=== PATIENT | female | born 1945 | race Caucasian/White ===

== ENCOUNTER → 2021-08-14 | Outpatient (CLI) | payer MEDICARE, OTHER | LOC: MHCPAIN 15:18 | DX: M47.896 Other spondylosis, lumbar region (principal); M53.3 Sacrococcygeal disorders, not elsewhere classified; M54.16 Radiculopathy, lumbar region; G89.29 Other chronic pain | CPT/HCPCS: G0463 ==

== ENCOUNTER → 2021-11-16 | Outpatient (CLI) | payer MEDICARE, OTHER | LOC: MC.RAD 13:38 | DX: Z12.31 Encounter for screening mammogram for malignant neoplasm of breast (principal); N60.11 Diffuse cystic mastopathy of right breast; N60.12 Diffuse cystic mastopathy of left breast ==

== ENCOUNTER → 2021-12-12 | Outpatient (CLI) | payer MEDICARE, OTHER ==
[~2021-12-12] MED LIST: COREG 25MG25 MG/TAB PO; LASIX 40MG TABL40 MG PO; LIPITOR 80MG80 MG PO; PLAVIX 75MG TAB75 MG PO; PROTONIX20 MG PO; SYNTHROID0.088 MG/T PO; TENORMIN 5050 MG/TAB PO; TRELEGY ELLIPT1 EACH IH; ZOLOFT 50MG50 MG PO
[2021-12-12 11:37] LABS: ARTERIAL BLD GAS O2 SATURATION 90.9 % (92-100); ARTERIAL BLD GAS TCO2 CT 29.3; ARTERIAL BLOOD GAS BASE EXCESS 2.2 (-2-2); ARTERIAL BLOOD GAS HCO3 27.8 meq/L (22-26); ARTERIAL BLOOD GAS PO2 60.9 mmHg (80-100); ARTERIAL BLOOD GAS pH 7.39 (7.35-7.45)
== END ==
LOC: COL.PUL 11:16
PROVIDERS: Internal Medicine Pulmonary Disease
DX: J44.9 Chronic obstructive pulmonary disease, unspecified (principal)

== ENCOUNTER → 2021-12-25 | Outpatient (CLI) | payer MEDICARE, OTHER | LOC: MHCPAIN 12:10 | DX: M47.817 Spondylosis without myelopathy or radiculopathy, lumbosacral region (principal); M54.50 Low back pain, unspecified; M53.3 Sacrococcygeal disorders, not elsewhere classified | CPT/HCPCS: G0463; J1100; Q9967 ==

== ENCOUNTER → 2022-01-01 | Outpatient (CLI) | payer MEDICARE, OTHER ==
[~2022-01-01] MED LIST changes: +ASPIRIN E.C. 8181 MG PO; +ULTRAM 50MG TAB50 MG PO
== END ==
LOC: MHCPAIN 15:43
DX: M47.816 Spondylosis without myelopathy or radiculopathy, lumbar region (principal); M53.3 Sacrococcygeal disorders, not elsewhere classified; M54.50 Low back pain, unspecified
CPT/HCPCS: G0463

== ENCOUNTER 2022-01-22 15:58 | Outpatient (CLI) | payer MEDICARE, OTHER ==
[~2022-01-22 15:58] MED LIST changes: -ASPIRIN E.C. 8181 MG PO; -ULTRAM 50MG TAB50 MG PO
[2022-01-22] MEDS ORDERED: ULTRAM 50MG TAB50 MG PO (17:35)
[2022-01-22] MEDS ORDERED: ASPIRIN E.C. 8181 MG PO (17:35)
== END 2022-01-22 17:45 | disposition home or self-care (01) ==
LOC: EUO 15:58
DX: M81.0 Age-related osteoporosis without current pathological fracture (principal)
CPT/HCPCS: J3111

== ENCOUNTER 2022-03-02 12:38 | Outpatient (RCR) | payer MEDICARE, OTHER ==
[~2022-03-02] VITALS: Ht 154.9 cm; Wt 71.5 kg
[~2022-03-02 12:38] MED LIST changes: +ASPIRIN E.C. 8181 MG PO; +ULTRAM 50MG TAB50 MG PO
[2022-03-02 12:59] VITALS: BP 160/90; PULSE 57; TEMP 98.6
== END 2022-03-02 13:17 ==
LOC: EUO 12:38
DX: M81.0 Age-related osteoporosis without current pathological fracture (principal)
CPT/HCPCS: J3111

== ENCOUNTER 2022-07-05 16:11 | Outpatient (RCR) | payer MEDICARE, OTHER ==
[~2022-07-05] VITALS: Ht 154.9 cm; Wt 57.2 kg
[2022-07-05 16:38] VITALS: BP 115/76; PULSE 60; TEMP 98.8
== END 2022-07-05 18:54 | disposition home or self-care (01) ==
LOC: EUO 16:11
DX: M81.0 Age-related osteoporosis without current pathological fracture (principal)
CPT/HCPCS: J3111

== ENCOUNTER 2022-08-03 15:35 | Outpatient (RCR) | payer MEDICARE, OTHER ==
[2022-08-03 15:54] VITALS: BP 113/76; PULSE 60; TEMP 98.3
== END 2022-08-03 16:04 ==
LOC: EUO 15:35
DX: M81.0 Age-related osteoporosis without current pathological fracture (principal)
CPT/HCPCS: J3111

== ENCOUNTER → 2022-08-08 | Outpatient (CLI) | payer MEDICARE, OTHER | LOC: MHCPAIN 15:49 | DX: M47.816 Spondylosis without myelopathy or radiculopathy, lumbar region (principal); M54.50 Low back pain, unspecified; M53.3 Sacrococcygeal disorders, not elsewhere classified; M54.16 Radiculopathy, lumbar region | CPT/HCPCS: G0463 ==

== ENCOUNTER → 2022-09-06 | Outpatient (CLI) | payer MEDICARE, OTHER | LOC: MHCPAIN 15:41 | DX: M47.817 Spondylosis without myelopathy or radiculopathy, lumbosacral region (principal); M48.061 Spinal stenosis, lumbar region without neurogenic claudication; M54.16 Radiculopathy, lumbar region | CPT/HCPCS: J1100; Q9967 ==

== ENCOUNTER 2022-09-07 14:58 | Outpatient (CLI) | payer MEDICARE, OTHER ==
[~2022-09-07] VITALS: Ht 154.9 cm; Wt 57.0 kg
[2022-09-07 15:05] VITALS: BP 155/59; PULSE 59; TEMP 98.7
--- NOTE | 2022-09-07 15:42 | NUR ---
Pt brought up to [facility] escorted by her daughter. Came in for her evenity shots. Reviewed meds and hx. No conerns at this time. Left unit by wheelchair with help from daughter.
== END 2022-09-07 15:40 | disposition home or self-care (01) ==
LOC: EUO 14:58
DX: M81.0 Age-related osteoporosis without current pathological fracture (principal)
CPT/HCPCS: J3111